=== PATIENT | male | born 1930 | race African-American/Black ===

== ENCOUNTER 2019-10-24 07:40 | Day surgery (SDC) | payer MEDICARE, MEDICAID ==
[~2019-10-24] VITALS: Ht 170.2 cm; Wt 94.3 kg
[~2019-10-24 07:40] MED LIST: ASPI-1158 PO; BENA10TA74 PO; HYDR12.54 PO; ISOS30TA6 PO; NITR4.1S2 TL; ROSU5TAB PO; ROSU5TAB10 PO; TAMS-11 PO; TAMS0.4C31 PO; TIOT18CA3 IH
[2019-10-24] MEDS ORDERED: LACTATED RINGERS 1,000 ML IV SCH (08:00)
[2019-10-24 08:50] LABS: BASOPHILS % 0.3 % (0.0-2.0); EOSINOPHILS % 5.1 % (0.0-5.0); HEMATOCRIT. 40.6 % (42.0-52.0); HEMOGLOBIN. 13.5 g/dL (14.0-18.0); LYMPHOCYTES % 31.3 % (20.0-50.0); MEAN CORPUSCULAR HEMOGLOBIN 29.4 pg (28.0-32.0); MEAN CORPUSCULAR VOLUME 88.7 fL (80.0-94.0); MEAN PLATELET VOLUME 8.7 fl (7.4-10.4); MONOCYTES % 11.5 % (2.0-8.0); NEUTROPHILS % 51.8 % (40.0-76.0); PLATELET 233 x1000/uL (130-400); RED BLOOD CELL COUNT 4.58 mill/uL (4.7-6.1); RED CELL DISTRIBUTION WIDTH 15.9 % (11.6-14.6)
[2019-10-24] MEDS ORDERED: LIDOCAINE HCL/PF 1% 10 MG/ML 5ML VIAL ONE (09:20)
[2019-10-24] MEDS ORDERED: FENTANYL CITRATE/PF 50MCG/ML 2ML VIAL ONE (09:20)
[2019-10-24] MEDS ORDERED: PROPOFOL 200MG/20ML VIAL IV ONE (09:20)
[2019-10-24] MEDS ORDERED: MIDAZOLAM HCL 2 MG/2 ML VIAL ONE (09:20)
[2019-10-24] MEDS ORDERED: DEXAMETHASONE 4MG/ML 1ML VIAL ONE (09:36)
[2019-10-24] MEDS ORDERED: TETRACAINE 0.5% OPHTH DROPS 4ML ONE (15:52)
[2019-10-24] MEDS ORDERED: BUPIVACAINE HCL/PF 0.75% (7.5MG/ML) 10ML ONE (15:52)
[2019-10-24] MEDS ORDERED: LIDOCAINE HCL 2%/EPINEPHRINE 1:100,000 20 ML VIAL INFIL ONE (15:52)
[2019-10-24] MEDS ORDERED: PREDNISOLONE ACETATE 1% OPHTH DROPS 5ML ONE (15:52)
[2019-10-24] MEDS ORDERED: BALANCED SALT IRRIG SOLN 15ML ONE (15:52)
[2019-10-24] MEDS ORDERED: LIDOCAINE HCL/PF 2% 20 MG/ML 10ML VIAL ONE (15:52)
[2019-10-24] MEDS ORDERED: NEO/POLYMYX B SULF/DEXAMETH OPHTH OINT 3.5GM ONE (15:52)
[2019-10-24] MEDS ORDERED: CIPROFLOXACIN 0.3% OPHTH SOLN 2.5ML ONE (15:52)
== END 2019-10-24 12:20 | disposition home or self-care (01) ==
LOC: OR 07:40
PROVIDERS: ATTEND Ophthalmology
DX: H50.10 Unspecified exotropia (principal); I25.10 Atherosclerotic heart disease of native coronary artery without angina pectoris; E78.00 Pure hypercholesterolemia, unspecified; J43.9 Emphysema, unspecified; I12.9 Hypertensive chronic kidney disease with stage 1 through stage 4 chronic kidney disease, or unspecified chronic kidney disease; N18.9 Chronic kidney disease, unspecified; E78.5 Hyperlipidemia, unspecified; Z98.890 Other specified postprocedural states; Z85.46 Personal history of malignant neoplasm of prostate; Z95.1 Presence of aortocoronary bypass graft; Z98.41 Cataract extraction status, right eye; Z86.79 Personal history of other diseases of the circulatory system; Z79.899 Other long term (current) drug therapy; Z79.82 Long term (current) use of aspirin; Z87.891 Personal history of nicotine dependence
CPT/HCPCS: 36415; 67312; 80048; 85025; J2704; J3010; J3490; J1100; J2250